=== PATIENT | male | born 1995 | race Caucasian/White ===

== ENCOUNTER 2018-01-09 23:50 | Emergency (ER) | payer OTHER, MEDICAID ==
[2018-01-10 01:14] LABS: ADD MAN DIFF? NO
[2018-01-10 01:17] LABS: BASOPHILS % 0.3 % (0.0-2.0); EOSINOPHILS % 0.3 % (0.0-7.0); HEMATOCRIT 41.9 % (42.0-52.0); HEMOGLOBIN 14.7 g/dl (14.0-18.0); LYMPHOCYTES # 1.6 10^3/ul (0.8-2.9); LYMPHOCYTES % 25.6 % (15.0-51.0); MEAN CORPUSCULAR HEMOGLOBIN 29.6 pg (29.0-33.0); MEAN CORPUSCULAR HGB CONC 35.1 g/dl (32.0-37.0); MEAN CORPUSCULAR VOLUME 84.3 fl (82.0-101.0); MEAN PLATELET VOLUME 10.3 fl (7.4-10.4); MONOCYTE # 0.4 10^3/ul (0.3-0.9); MONOCYTES % 5.8 % (0.0-11.0); NEUTROPHIL # 4.2 10^3/ul (1.6-7.5); NEUTROPHILS % 67.7 % (39.0-77.0); PLATELET COUNT 253 10^3/UL (140-415); RED BLOOD COUNT 4.97 10^6/ul (4.70-6.10); RED CELL DISTRIBUTION WIDTH 11.9 % (11.5-14.5)
[2018-01-10 01:17] LABS: WHITE BLOOD COUNT 6.3 10^3/ul (4.8-10.8)
[2018-01-10 02:01] LABS: ALANINE AMINOTRANSFERASE 30 IU/L (13-69); ALBUMIN 5.1 g/dl (3.3-4.9); ALBUMIN/GLOBULIN RATIO 1.54; ALKALINE PHOSPHATASE 61 IU/L (42-121); ANION GAP 19 (8-16); ASPARTATE AMINO TRANSFERASE 33 IU/L (15-46); BILIRUBIN,INDIRECT 0.2 mg/dl (0-1.1); BILIRUBIN,TOTAL 0.2 mg/dl (0.2-1.3); BLOOD UREA NITROGEN 22 mg/dl (7-20); CALCIUM 9.7 mg/dl (8.4-10.2); CARBON DIOXIDE 25 mmol/L (21-31); CHLORIDE 103 mmol/L (97-110); CREATININE 1.11 mg/dl (0.61-1.24); GLUCOSE 120 mg/dl (70-220); POTASSIUM 3.8 mmol/L (3.5-5.1); SODIUM 143 mmol/L (135-144); TOTAL PROTEIN 8.4 g/dl (6.1-8.1)
[2018-01-10 02:09] LABS: ACETAMINOPHEN < 10.0 ug/ml (10.0-30.0); ETHANOL < 10.0 mg/dl; SALICYLATE < 1.0 mg/dl (5.0-30.0)
[2018-01-10 02:13] LABS: AMPHETAMINE/METHAMPHETAMINE Negative (NEGATIVE); BARBITURATES Negative (NEGATIVE); BENZODIAZEPINES Negative (NEGATIVE); CANNABINOIDS Positive (NEGATIVE); COCAINE Negative (NEGATIVE); OPIATES Negative (NEGATIVE)
== END 2018-01-10 10:02 ==
LOC: E/R 23:50
DX: R45.851 Suicidal ideations (principal)
CPT/HCPCS: 36415; 80053; 80306; 80307; 85025; 99285

== ENCOUNTER 2018-08-25 22:09 | Emergency (ER) | payer BC, OTHER | END 2018-08-26 00:12 | disposition home or self-care (01) | LOC: FTE 08-26 00:12 | DX: R07.9 Chest pain, unspecified (principal) | CPT/HCPCS: 71045; 93005; 99284-25 ==

== ENCOUNTER 2018-10-05 22:47 | Emergency (ER) | payer BC ==
[2018-10-06] MEDS: ACETAMINOPHEN 500 MG TAB PO (01:03)
[2018-10-06] MEDS: IBUPROFEN 600 MG TAB PO (01:03)
== END 2018-10-06 03:56 | disposition home or self-care (01) ==
LOC: FTE 22:47
DX: J40 Bronchitis, not specified as acute or chronic (principal)
CPT/HCPCS: 71045; 99283-25

== ENCOUNTER 2018-10-07 02:35 | Emergency (ER) | payer BC | END 2018-10-07 03:20 | disposition home or self-care (01) | LOC: FTE 02:35 | DX: R09.81 Nasal congestion (principal) | CPT/HCPCS: 99282 ==

== ENCOUNTER 2018-10-22 01:29 | Emergency (ER) | payer BC | END 2018-10-22 02:30 | disposition home or self-care (01) | LOC: E/R 01:29 | DX: F12.10 Cannabis abuse, uncomplicated (principal) | CPT/HCPCS: 99282 ==

== ENCOUNTER 2018-11-19 05:24 | Emergency (ER) | payer BC ==
[2018-11-19] MEDS: IBUPROFEN 800 MG TAB PO (06:41)
== END 2018-11-19 07:15 | disposition home or self-care (01) ==
LOC: E/R 05:24
DX: R07.9 Chest pain, unspecified (principal); R40.2142 Coma scale, eyes open, spontaneous, at arrival to emergency department; R40.2362 Coma scale, best motor response, obeys commands, at arrival to emergency department; R40.2252 Coma scale, best verbal response, oriented, at arrival to emergency department
CPT/HCPCS: 71045; 93005; 99284-25

== ENCOUNTER 2019-02-26 02:46 | Emergency (ER) | payer SELFPAY, BC | END 2019-02-26 03:00 | disposition left against medical advice (07) | LOC: FTE 02:46 | DX: Z53.21 Procedure and treatment not carried out due to patient leaving prior to being seen by health care provider (principal) ==

== ENCOUNTER 2019-02-26 05:30 | Emergency (ER) | payer BC ==
[2019-02-26] MEDS: ONDANSETRON (ODT) 4 MG TAB ODT (06:06)
[2019-02-26] MEDS: LORAZEPAM 1 MG TAB PO (06:06)
[2019-02-26] MEDS: FAMOTIDINE 20 MG TAB PO (06:06)
[2019-02-26] MEDS: ASPIRIN 325 MG TAB PO (06:06)
== END 2019-02-26 06:17 | disposition home or self-care (01) ==
LOC: FTE 05:30
DX: R07.89 Other chest pain (principal); F41.9 Anxiety disorder, unspecified
CPT/HCPCS: 93005; 99283

== ENCOUNTER 2019-03-11 01:01 | Emergency (ER) | payer BC | END 2019-03-11 02:54 | disposition home or self-care (01) | LOC: FTE 01:01 | DX: R42 Dizziness and giddiness (principal) | CPT/HCPCS: 93005; 99283-25 ==

== ENCOUNTER 2019-03-29 23:46 | Emergency (ER) | payer SELFPAY, BC | END 2019-03-30 03:19 | disposition left against medical advice (07) | LOC: E/R 23:46 | DX: Z53.21 Procedure and treatment not carried out due to patient leaving prior to being seen by health care provider (principal) ==

== ENCOUNTER 2019-04-11 02:21 | Emergency (ER) | payer SELFPAY | END 2019-04-11 02:42 | disposition left against medical advice (07) | LOC: E/R 02:21 | DX: Z53.21 Procedure and treatment not carried out due to patient leaving prior to being seen by health care provider (principal) ==

== ENCOUNTER 2019-04-19 05:30 | Emergency (ER) | payer BC ==
[2019-04-19 08:53] LABS: HIV 1&2 ANTIBODY NEGATIVE (NEGATIVE)
== END 2019-04-19 09:12 | disposition home or self-care (01) ==
LOC: FTE 05:30
DX: Z20.6 Contact with and (suspected) exposure to human immunodeficiency virus [HIV] (principal)
CPT/HCPCS: 86703; 99283

== ENCOUNTER 2019-05-24 19:49 | Emergency (ER) | payer SELFPAY, BC | END 2019-05-24 22:26 | disposition home or self-care (01) | LOC: FTE 19:49 | DX: J02.9 Acute pharyngitis, unspecified (principal) | CPT/HCPCS: 99282 ==

== ENCOUNTER 2019-07-06 04:19 | Emergency (ER) | payer OTHER ==
[2019-07-06] MEDS: LORAZEPAM 1 MG TAB PO (05:11)
== END 2019-07-06 05:47 | disposition home or self-care (01) ==
LOC: FTE 04:19
DX: H93.13 Tinnitus, bilateral (principal); R09.89 Other specified symptoms and signs involving the circulatory and respiratory systems; F41.9 Anxiety disorder, unspecified
CPT/HCPCS: 71045; 99283-25